=== PATIENT | male | born 1985 | race American Indian/Alaskan Native ===

== ENCOUNTER 2018-01-05 09:05 | Emergency (ER) | payer OTHER ==
[2018-01-05 09:12] VITALS: BMI 35.5
--- NOTE | 2018-01-05 09:22 | PDOC ---
History of Present Illness - General History Source: Patient Exam Limitations: No Limitations - History of Present Illness Initial Comments: 01/05/18 09:46 The patient is a 32 year old male, with no significant past medical history, who presents to the emergency department with, mild epigastric abdominal discomfort, nausea without vomiting, 3-4 episodes of diarrhea (non bloody), sore throat, subjective fever and chills, and dry cough for approx. one week. The patient reports he took Tylenol for the cold-like symptoms with mild relief yesterday but has not taken any medication today. The patients friend (roommate ) at bedside reports he lives with the patient and was diagnosed with a viral infection yesterday and has had similar symptoms. The patient reports he has been able to tolerate foods and liquids without vomiting. The patient denies any recent travel, antibiotics use, or surgeries. He denies any recent headache or dizziness. He denies any recent vomit or constipation. He denies any recent chest pain or shortness of breath. He denies any recent dysuria, frequency, urgency or hematuria. Allergies: NKA Past surgical history: None reported. <Benedicto Fox - Last Filed: 01/05/18 09:49> <Carolyn Amador - Last Filed: 01/05/18 10:28> - General Chief Complaint: Pain Stated Complaint: PAIN/ ABD, THROAT, NAUSEA Time Seen by Provider: 01/05/18 09:22 Past History <Benedicto Fox - Last Filed: 01/05/18 09:49> - Past Medical History COPD: No - Suicide/Smoking/Psychosocial Hx Smoking History: Former smoker Have you smoked in the past 12 months: No Information on smoking cessation initiated: No Hx Alcohol Use: No Drug/Substance Use Hx: No Substance Use Type: None <Carolyn Amador - Last Filed: 01/05/18 10:28> - Past Medical History Allergies/Adverse Reactions: Allergies Allergy/AdvReac Type Severity Reaction Status Date / Time No Known Allergies Allergy Verified 01/05/18 09:08 Home Medications: Ambulatory Orders Ondansetron [Ondansetron Odt] 8 mg PO TID PRN #10 tab.rapdis 01/05/18 Review of Systems - Review of Systems Comments:: 01/05/18 09:46 GENERAL/CONSTITUTIONAL: +Subjective fever. +Chills. No weakness. HEAD, EYES, EARS, NOSE AND THROAT: +Sore throat. No change in vision. No ear pain or discharge. GASTROINTESTINAL: +Epigastric abdominal discomfort. +Nausea. +Diarrhea. No vomiting or constipation. GENITOURINARY: No dysuria, frequency, or change in urination. CARDIOVASCULAR: No chest pain or shortness of breath. RESPIRATORY: +Dry cough. No wheezing, or hemoptysis. MUSCULOSKELETAL: No joint or muscle swelling or pain. No neck or back pain. SKIN: No rash NEUROLOGIC: No headache, vertigo, loss of consciousness, or change in strength/ sensation. ENDOCRINE: No increased thirst. No abnormal weight change. HEMATOLOGIC/LYMPHATIC: No anemia, easy bleeding, or history of blood clots. ALLERGIC/IMMUNOLOGIC: No hives or skin allergy. <Benedicto Fox - Last Filed: 01/05/18 09:49> *Physical Exam - Vital Signs Last Vital Signs Temp Pulse Resp BP Pulse Ox 98.1 F 85 18 155/97 100 01/05/18 09:09 01/05/18 09:09 01/05/18 09:09 01/05/18 09:09 01/05/18 09:09 - Physical Exam Comments: 01/05/18 09:47 Constitutional: Awake, alert, oriented. No acute distress. Head: Normocephalic. Atraumatic Eyes: PERRL. EOMI. Conjunctivae are not pale. ENT: +Mild erythema posterior pharynx. Posterior pharynx without exudates. Uvula midline. Mucous membranes are moist and intact. Neck: Supple. Full ROM. No lymphadenopathy. Cardiovascular: Regular rate. Regular rhythm. S1, S2 regular. Distal pulses are 2+ and symmetric. Pulmonary/Chest: No evidence of respiratory distress. Clear to auscultation bilaterally No wheezing, rales or rhonchi. Abdominal: +Mild epigastric tenderness. Soft and non-distended. No rebound, guarding or rigidity. No organomegaly. No palpable masses. Good bowel sounds. Back: No CVA tenderness. Musculoskeletal: No edema. No cyanosis. No clubbing. Full range of motion in all extremities. No calf tenderness. Radial/pedal pulses are intact and 2+ bilaterally Skin: Skin is warm and dry. No petechiae. No purpura. Neurological: Alert and oriented to person, place, and time. Cranial nerves II -XII are grossly intact. Normal speech. Strength is grossly symmetric. No sensory deficits. Psychiatric: Good eye contact. Normal interaction, affect and behavior. <Benedicto Fox - Last Filed: 01/05/18 09:49> - Vital Signs Last Vital Signs Temp Pulse Resp BP Pulse Ox 98.1 F 85 18 155/97 100 01/05/18 09:09 01/05/18 09:09 01/05/18 09:09 01/05/18 09:09 01/05/18 09:09 <Carolyn Amador - Last Filed: 01/05/18 10:28> ED Treatment Course - Medications Given in the ED: ED Medications Discontinued Medications Generic Name Dose Route Start Last Admin Trade Name Faviola PRN Reason Stop Dose Admin Ondansetron HCl 4 mg 01/05/18 09:30 01/05/18 09:45 Zofran Injection IVPUSH 01/05/18 09:31 4 mg ONCE ONE Administration Sodium Chloride 1,000 ml 01/05/18 09:30 01/05/18 09:45 Normal Saline - IV 01/05/18 09:31 1,000 ml ONCE ONE Administration <Benedicto Fox - Last Filed: 01/05/18 09:49> - LABORATORY CBC & Chemistry Diagram: 01/05/18 09:45 01/05/18 09:45 <Carolyn Amador - Last Filed: 01/05/18 10:28> Medical Decision Making - Medical Decision Making 01/05/18 09:31 a/p: 32yo male with sore throat, ear pain, epigastric pain and diarrhea -suspect viral syndrome -no signs of otitis media -no meningeal signs or [place], neck supple -mild pharyngeal erythema -mild epigastric ttp -will check labs, hydrate, zofran, pepcid -friend at the bedside with similar symptoms dx yesterday at the hospital with a viral syndrome 01/05/18 10:24 labs reviewed strep negative normal wbc 01/05/18 10:25 pt states feeling better discussed lab results with the patient stable for d/c to home does not have PMD so will give clinic for follow up <Carolyn Amador - Last Filed: 01/05/18 10:28> *DC/Admit/Observation/Transfer - Attestations Scribe Attestion: 01/05/18 09:49 Documentation prepared by Benedicto Fox, acting as medical delivery driver for Carolyn Amador DO. <Benedicto Fox - Last Filed: 01/05/18 09:49> - Discharge Dispostion Admit: No - Attestations Physician Attestion: 01/05/18 10:28 I, Dr. Carolyn Amador DO, attest that this document has been prepared under my direction and personally reviewed by me in its entirety. I further attest, that it accurately reflects all work, treatment, procedures and medical decision -making performed by me. <Carolyn Amador - Last Filed: 01/05/18 10:28> Diagnosis at time of Disposition: Nausea, Diarrhea - Discharge Dispostion Disposition: HOME Condition at time of disposition: Stable - Prescriptions Prescriptions: Ondansetron [Ondansetron Odt] 8 mg PO TID PRN #10 tab.rapdis PRN Reason: Nausea - Referrals Referrals: Terrance Royal MD [Staff Physician] - - Patient Instructions Printed Discharge Instructions: DI for Nausea -- Adult, DI for Diarrhea and Traveler's Diarrhea -- Adult Additional Instructions: Please take all medications as prescribed. Please make an appointment to see your PMD. Please drink plenty of fluids. Please return to the ED with any further complaints.
[2018-01-05] MEDS ORDERED: SODIUM CHLORIDE 0.9% 1000 ML INFUS.BAG IV ONE (09:30)
[2018-01-05] MEDS ORDERED: ONDANSETRON 4 MG/2 ML VIAL IVPUSH ONE (09:30)
[2018-01-05] MEDS ORDERED: ONDANSETRON 4 MG/2 ML VIAL ONE (09:35)
[2018-01-05 09:54] LABS: BASO % 0.4 % (0-2.0); EOS % 1.2 % (0-4.5); HEMATOCRIT 44.4 % (35.4-49); HEMOGLOBIN 15.1 GM/dL (11.7-16.9); LYMPH % 24.4 % (8-40); MCH 28.2 pg (25.7-33.7); MCHC 33.9 g/dl (32.0-35.9); MEAN CELL VOLUME 83.2 fl (80-96); MEAN PLT VOLUME 7.1 fl (7.5-11.1); PLATELET COUNT 217 K/MM3 (134-434); RBC 5.34 M/mm3 (4.00-5.60); RDW 13.6 % (11.9-15.9); WHITE BLOOD COUNT 8.3 K/mm3 (4.0-10.0)
[2018-01-05] MEDS ORDERED: FAMOTIDINE 20 MG/50 ML IVPB 20 MG/50 ML MG IVPB ONE (10:00)
[2018-01-05 10:17] LABS: ALBUMIN 4.3 g/dl (3.4-5.0); ANION GAP 6 (8-16); BLOOD UREA NITROGEN 14 mg/dL (7-18); CALCIUM 8.8 mg/dL (8.5-10.1); CHLORIDE 105 mmol/L (98-107); CO2 30 mmol/L (21-32); CREATININE 0.7 mg/dL (0.7-1.3); GLUCOSE,RANDOM 100 mg/dL (74-106); LIPASE 112 U/L (73-393); SGPT/ALT 66 U/L (12-78); SODIUM 141 mmol/L (136-145)
[2018-01-05 10:19] LABS: ALK PHOS 91 U/L (45-117); BILIRUBIN,TOTAL 0.5 mg/dL (0.2-1.0); TOT PROT 7.4 g/dl (6.4-8.2)
[2018-01-05 10:20] LABS: POTASSIUM 4.2 mmol/L (3.5-5.1); SGOT/AST 33 U/L (15-37)
[2018-01-05 10:47] VITALS: BP 138/78; PULSE 78; TEMP 98.4
== END 2018-01-05 10:47 | disposition home or self-care (01) ==
LOC: JER 09:05
PROC: 3E033GC Introduction of Other Therapeutic Substance into Peripheral Vein, Percutaneous Approach (ICD-10-PCS; principal; 2018-01-05)
PROC: 3E033GC Introduction of Other Therapeutic Substance into Peripheral Vein, Percutaneous Approach (ICD-10-PCS; 2018-01-05)
DX: R19.8 Other specified symptoms and signs involving the digestive system and abdomen (principal); R11.0 Nausea; R19.7 Diarrhea, unspecified
CPT/HCPCS: 36415; 80053; 83690; 85025; 87070; 87430; 99282-25; J7030